=== PATIENT | female | born 2000 | race Asian ===

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

== ENCOUNTER 2021-04-26 18:31 | Emergency (ER) | payer OTHER ==
[~2021-04-26] VITALS: Ht 154.9 cm; Wt 60.9 kg
[2021-04-26 18:32] VITALS: BP 117/74
[2021-04-26 20:25] LABS: RSV AMPLIFICATION NEGATIVE (NEGATIVE)
[2021-04-26] MEDS ORDERED: ONDANSETRON 4 MG ORAL DISINTEGRATING TAB PO ONE (20:35)
[2021-04-26] MEDS ORDERED: ACETAMINOPHEN 325 MG TAB PO ONE (20:35)
== END 2021-04-26 23:00 | disposition home or self-care (01) ==
LOC: M ED 18:31
DX: R11.2 Nausea with vomiting, unspecified (principal); R51.9 Headache, unspecified; Z20.822 Contact with and (suspected) exposure to COVID-19
CPT/HCPCS: 36415; 84702; 87631; 99282; Q0162

== ENCOUNTER 2021-06-20 00:13 | Emergency (ER) | payer OTHER ==
[~2021-06-20] VITALS: Ht 152.4 cm; Wt 72.6 kg
--- OUTSIDE RECORDS SUMMARY | 2021-06-20 00:19 | CCD ---
Author Author [facility] Organization [facility] Address Unknown Phone Unavailable Support Name Relationship Address Phone [facility] Next Of Kin [address] [place] [address] Unavailable KULWANT MASON Next Of Kin [address] [place] [address] DESTINYREANZ Next Of Kin Unknown KULWANT MASON ECON [address] [place] [address] Unavailable Re-disclosure Warning The records that you are about to access may contain information from federally-assisted alcohol or drug abuse programs. If such information is present, then the following federally mandated warning applies: This information has been disclosed to you from records protected by federal confidentiality rules (42 CFR part 2). The federal rules prohibit you from making any further disclosure of this information unless further disclosure is expressly permitted by the written consent of the person to whom it pertains or as otherwise permitted by 42 CFR part 2. A general authorization for the release of medical or other information is NOT sufficient for this purpose. The Federal rules restrict any use of the information to criminally investigate or prosecute any alcohol or drug abuse patient.The records that you are about to access may contain highly sensitive health information, the redisclosure of which is protected by Article 27-F of the [facility] Public Health law. If you continue you may have access to information: Regarding HIV / AIDS; Provided by facilities licensed or operated by the [facility] Office of Mental Health; or Provided by the [facility] Office for People With Developmental Disabilities. If such information is present, then the following [facility] mandated warning applies: This information has been disclosed to you from confidential records which are protected by state law. State law prohibits you from making any further disclosure of this information without the specific written consent of the person to whom it pertains, or as otherwise permitted by law. Any unauthorized further disclosure in violation of state law may result in a fine or residential sentence or both. A general authorization for the release of medical or other information is NOT sufficient authorization for further disc losure. Immunizations Vaccine Date Status Description Data Source(s) COVID-19 VACCINE Pfizer 11/18/2020 12:00:00 AM EDT completed [facility] Vaccine Series Complete: NOThis Data was Submitted to [facility] Via [employer]. Medications No Information Insurance Providers Payer name Policy type / Coverage type Policy ID Covered libertarian ID Covered libertarian's relationship to brantley Policy Brantley Plan Information [facility] [employer] [id number] SP [id number] [facility] [employer] - O/P [id number] Problems, Conditions, and Diagnoses No Information Surgeries/Procedures No Information Results ID Date Data Source [id number] 04/26/2021 07:29:00 PM EDT [facility] Name Value Range Interpretation Code Description Data Lula rce(s) Supporting Document(s) SARS coronavirus 2 RNA [Presence] in Res piratory specimen by DEJON with probe detection NEGATIVE [facility] This lab was ordered by [facility] a nd reported by [facility]. ID Date Data Source [id number] 12/15/2020 05:13:00 PM EDT [facility] Name Value Range Interpretation Code Description Data Lula rce(s) Supporting Document(s) SARS-CoV-2 (COVID-19) RNA [Presence] in Respiratory specimen by DEJON with probe detection Not Detected [facility] This lab was ordered by [facility] and reported by [employer] ID Date Data Source [id number] 12/15/2020 04:35:00 PM EDT [facility] Name Value Range Interpretation Code Description Data Lula rce(s) Supporting Document(s) SARS COVID ANTIGEN NEGATIVE [facility] This lab was ordered by [facility] a nd reported by [facility]. Procedure Social History No Information
[2021-06-20 02:04] LABS: HEMATOCRIT 40.2 % (36.0-47.0); HEMOGLOBIN 13.4 g/dl (12.0-15.5); MEAN CORPUSCULAR HEMOGLOBIN 31.2 pg (27.0-33.0); MEAN CORPUSCULAR HGB CONC 33.3 g/dl (32.0-36.5); MEAN CORPUSCULAR VOLUME 93.7 fl (80.0-96.0); PLATELET COUNT, AUTOMATED 314 10^3/uL (150-450); RED BLOOD COUNT 4.29 10^6/uL (4.00-5.40); WHITE BLOOD COUNT 6.9 10^3/uL (4.0-10.0)
[2021-06-20 02:26] LABS: HCG, SERUM QUALITATIVE NEGATIVE (NEGATIVE)
[2021-06-20 02:28] LABS: AMPHETAMINES LEVEL URINE NEGATIVE (NEGATIVE); BARBITURATES URINE NEGATIVE (NEGATIVE); BENZODIAZEPINES URINE NEGATIVE (NEGATIVE); CANNABINOIDS URINE NEGATIVE (NEGATIVE); COCAINE METABOLITE URINE NEGATIVE (NEGATIVE); METHADONE URINE NEGATIVE (NEGATIVE); OPIATES URINE NEGATIVE (NEGATIVE); PHENCYCLIDINE URINE NEGATIVE (NEGATIVE)
[2021-06-20 02:41] LABS: ACETAMINOPHEN LEVEL < 2.0 UG/ML (10.0-30.0); ALBUMIN 4.2 GM/DL (3.2-5.2); ALT/SGPT 24 U/L (12-78); BILIRUBIN,DIRECT 0.1 MG/DL (0.0-0.2); BILIRUBIN,TOTAL 0.5 MG/DL (0.2-1.0); BLOOD UREA NITROGEN 6 MG/DL (7-18); CALCIUM LEVEL 9.6 MG/DL (8.5-10.1); CARBON DIOXIDE LEVEL 29 MEQ/L (21-32); CHLORIDE LEVEL 106 MEQ/L (98-107); CREATININE FOR GFR 0.75 MG/DL (0.55-1.30); ETHYL ALCOHOL (ETHANOL) 0.006 % (0.000-0.010); GLUCOSE, FASTING 103 MG/DL (70-100); POTASSIUM SERUM 3.7 MEQ/L (3.5-5.1); SALICYLATE LEVEL < 1.7 MG/DL (5.0-30.0); SODIUM LEVEL 142 MEQ/L (136-145); TOTAL PROTEIN 7.8 GM/DL (6.4-8.2)
--- OUTSIDE RECORDS SUMMARY | 2021-06-20 04:12 | CCD ---
Author Author [facility] Organization [facility] Address Unknown Phone Unavailable Support Name Relationship Address Phone [facility] Next Of Kin [address] [place] [address] Unavailable KULWANT MASON Next Of Kin [address] [place] [address] DESTINYREANZ Next Of Kin Unknown KULWANT MASON ECON [address] [place] [address] Unavailable Re-disclosure Warning The records that you [...] is protected by Article 27-F of the [facility] Public Health law. If you continue you may have access to information: Regarding HIV / AIDS; Provided by facilities licensed or operated by the [facility] Office of Mental Health; or Provided by the [facility] Office for People With Developmental Disabilities. If such information is present, then the following [facility] mandated warning applies: This information has been [...] law may result in a fine or mcfp sentence or both. A general authorization for the release of medical or other information is NOT sufficient authorization for further disc losure. Immunizations Vaccine Date Status Description Data Source(s) COVID-19 VACCINE Pfizer 11/18/2020 12:00:00 AM EDT completed [facility] Vaccine Series Complete: NOThis Data was Submitted to [facility] Via [email or web address]. Medications No Information Insurance Providers Payer name Policy type / Coverage type Policy ID Covered libertarian ID Covered libertarian's relationship to brantley Policy Brantley Plan Information [facility] [employer] [id number] SP [id number] [facility] [employer] - O/P [id number] Problems, Conditions, and Diagnoses No Information Surgeries/Procedures No Information Results ID Date Data Source [id number] 04/26/2021 07:29:00 PM EDT [facility] Name Value Range Interpretation Code Description Data Lula rce(s) Supporting Document(s) SARS coronavirus 2 RNA [Presence] in Res piratory specimen by DEJON with probe detection NEGATIVE [facility] This lab was ordered by [facility] a nd reported by [facility]. ID Date Data Source [id number] 12/15/2020 05:13:00 PM EDT [facility] Name Value Range Interpretation Code Description Data Lula rce(s) Supporting Document(s) SARS-CoV-2 (COVID-19) RNA [Presence] in Respiratory specimen by DEJON with probe detection Not Detected [facility] This lab was ordered by [facility] and reported by [employer]. ID Date Data Source [id number] 12/15/2020 04:35:00 PM EDT [facility] Name Value Range Interpretation Code Description Data Lula rce(s) Supporting Document(s) SARS COVID ANTIGEN NEGATIVE [facility] This lab was ordered by [facility] a nd reported by [facility]. Procedure Social History No Information
[2021-06-20 04:51] VITALS: BP 110/67
== END 2021-06-20 04:53 | disposition home or self-care (01) ==
LOC: M ED 00:13
DX: F32.A Depression, unspecified (principal); Z91.010 Allergy to peanuts

== ENCOUNTER → 2021-08-25 | Outpatient (REF) | LOC: M LABSMTC 14:03 | PROVIDERS: ATTEND Pediatrics | DX: Z20.822 Contact with and (suspected) exposure to COVID-19 (principal) ==

== ENCOUNTER 2022-06-05 09:36 | Inpatient (IN) | payer OTHER ==
[~2022-06-05] VITALS: Ht 154.9 cm; Wt 63.9 kg
[2022-06-05 13:56] LABS: HEMATOCRIT 42.4 % (36.0-47.0); HEMOGLOBIN 14.5 g/dl (12.0-15.5); MEAN CORPUSCULAR HEMOGLOBIN 32.4 pg (27.0-33.0); MEAN CORPUSCULAR HGB CONC 34.2 g/dl (32.0-36.5); MEAN CORPUSCULAR VOLUME 94.9 fl (80.0-96.0); PLATELET COUNT, AUTOMATED 357 10^3/uL (150-450); RED BLOOD COUNT 4.47 10^6/uL (4.00-5.40); WHITE BLOOD COUNT 6.8 10^3/uL (4.0-10.0)
[2022-06-05 14:20] LABS: HCG, SERUM QUALITATIVE NEGATIVE (NEGATIVE)
[2022-06-05 14:28] LABS: RSV AMPLIFICATION NEGATIVE (NEGATIVE)
[2022-06-05 14:37] LABS: ACETAMINOPHEN LEVEL < 2.0 UG/ML (10.0-30.0); ALBUMIN 4.5 GM/DL (3.2-5.2); ALT/SGPT 69 U/L (12-78); BILIRUBIN,DIRECT 0.3 MG/DL (0.0-0.2); BLOOD UREA NITROGEN 9 MG/DL (7-18); CALCIUM LEVEL 9.7 MG/DL (8.5-10.1); CARBON DIOXIDE LEVEL 25 MEQ/L (21-32); CHLORIDE LEVEL 105 MEQ/L (98-107); CREATININE FOR GFR 0.83 MG/DL (0.55-1.30); ETHYL ALCOHOL (ETHANOL) < 0.003 % (0.000-0.010); GLOMERULAR FILTRATION RATE > 60.0 (>60); GLUCOSE, FASTING 98 MG/DL (70-100); POTASSIUM SERUM 4.5 MEQ/L (3.5-5.1); SALICYLATE LEVEL < 1.7 MG/DL (5.0-30.0); SODIUM LEVEL 138 MEQ/L (136-145); TOTAL PROTEIN 8.6 GM/DL (6.4-8.2)
[2022-06-05 14:38] LABS: AMPHETAMINES LEVEL URINE NEGATIVE (NEGATIVE); BARBITURATES URINE NEGATIVE (NEGATIVE); BENZODIAZEPINES URINE NEGATIVE (NEGATIVE); CANNABINOIDS URINE NEGATIVE (NEGATIVE); COCAINE METABOLITE URINE NEGATIVE (NEGATIVE); METHADONE URINE NEGATIVE (NEGATIVE); OPIATES URINE NEGATIVE (NEGATIVE); PHENCYCLIDINE URINE NEGATIVE (NEGATIVE)
[2022-06-05] MEDS ORDERED: HOME MED LIST COMPLETE! XX SCH (21:50)
[2022-06-06] MEDS ORDERED: MAALOX 30 ML SUSP *UDC PO PRN (14:10)
[2022-06-06] MEDS ORDERED: MOM 30ML SUSPENSION UDC PO PRN (14:10)
[2022-06-06] MEDS ORDERED: ACETAMINOPHEN TAB 650MG DOSE (2X325MG) PO PRN (14:10)
[2022-06-06] MEDS ORDERED: traZODone 50 MG TAB PO PRN (14:10)
[2022-06-06 17:30] VITALS: BP 126/80
[2022-06-07 06:13] VITALS: BP 128/71
[2022-06-07 18:04] VITALS: BP 119/73
[2022-06-07] MEDS: OLANZapine 5 MG TAB PO SCH (21:01)
[2022-06-08 06:18] VITALS: BP 112/65
[2022-06-08] MEDS: SERTRALINE HCL 50 MG TAB PO SCH (09:34)
[2022-06-08 16:59] VITALS: BP 128/67
[2022-06-08] MEDS: OLANZapine 5 MG TAB PO SCH (20:38)
[2022-06-09 06:34] VITALS: BP 116/70
[2022-06-09 08:52] LABS: CHOLESTEROL RISK RATIO 2.796 (<5)
[2022-06-09] MEDS: SERTRALINE HCL 50 MG TAB PO SCH (09:15)
[2022-06-09 16:03] VITALS: BP 134/74
[2022-06-09 16:30] VITALS: BP 133/90
[2022-06-09] MEDS: OLANZapine 5 MG TAB PO SCH (21:23)
[2022-06-10 06:40] VITALS: BP 113/57
[2022-06-10] MEDS: SERTRALINE HCL 50 MG TAB PO SCH (09:17)
[2022-06-10 17:31] VITALS: BP 122/60
[2022-06-10] MEDS: OLANZapine 5 MG TAB PO SCH (21:01)
[2022-06-11 06:59] VITALS: BP 123/74
[2022-06-11] MEDS: SERTRALINE HCL 50 MG TAB PO SCH (09:56)
[2022-06-11] MEDS: OLANZapine 5 MG TAB PO SCH (21:07)
[2022-06-12 06:56] VITALS: BP 121/76
[2022-06-12] MEDS: SERTRALINE HCL 50 MG TAB PO SCH (08:08)
[2022-06-12] MEDS ORDERED: SERT50TA29 PO (09:59)
[2022-06-12] MEDS ORDERED: OLAN1TAB16 PO (09:59)
== END 2022-06-12 12:53 | disposition home or self-care (01) | DRG 881 ==
LOC: M ED 09:36 → M ED INP 06-06 14:07 → M PSY 06-06 16:50
PROVIDERS: ADMIT Psychiatry & Neurology Psychiatry; ATTEND Psychiatry & Neurology Psychiatry
DX: F32.A Depression, unspecified (principal); U07.1 COVID-19; F32.3 Major depressive disorder, single episode, severe with psychotic features; Z91.010 Allergy to peanuts

== ENCOUNTER 2022-08-02 15:54 | Emergency (ER) | payer OTHER ==
[~2022-08-02] VITALS: Ht 154.9 cm; Wt 70.1 kg
[~2022-08-02 15:54] MED LIST: OLAN1TAB16 PO; SERT50TA29 PO
[2022-08-02 18:04] LABS: HEMATOCRIT 40.9 % (36.0-47.0); HEMOGLOBIN 13.5 g/dl (12.0-15.5); MEAN CORPUSCULAR HEMOGLOBIN 31.8 pg (27.0-33.0); MEAN CORPUSCULAR VOLUME 96.5 fl (80.0-96.0); PLATELET COUNT, AUTOMATED 283 10^3/uL (150-450); RED BLOOD COUNT 4.24 10^6/uL (4.00-5.40); WHITE BLOOD COUNT 6.5 10^3/uL (4.0-10.0)
[2022-08-02 18:21] LABS: AMPHETAMINES LEVEL URINE NEGATIVE (NEGATIVE); BARBITURATES URINE NEGATIVE (NEGATIVE); BENZODIAZEPINES URINE NEGATIVE (NEGATIVE); CANNABINOIDS URINE NEGATIVE (NEGATIVE); COCAINE METABOLITE URINE NEGATIVE (NEGATIVE); METHADONE URINE NEGATIVE (NEGATIVE); OPIATES URINE NEGATIVE (NEGATIVE); PHENCYCLIDINE URINE NEGATIVE (NEGATIVE)
[2022-08-02 18:24] LABS: ETHYL ALCOHOL (ETHANOL) 0.003 % (0.000-0.010)
[2022-08-02 18:25] LABS: ACETAMINOPHEN LEVEL < 2.0 UG/ML (10.0-20.0)
[2022-08-02 18:26] LABS: BILIRUBIN,DIRECT 0.3 MG/DL (<0.4); SALICYLATE LEVEL < 3.0 MG/DL (<30)
[2022-08-02 18:32] LABS: ALBUMIN 4.3 G/DL (3.2-5.2); ALKALINE PHOSPHATASE 60 U/L (46-116); ALT/SGPT 27 U/L (7.0-40); AST/SGOT 28 U/L (<34); BILIRUBIN,TOTAL 0.9 MG/DL (0.3-1.2); BLOOD UREA NITROGEN 14 MG/DL (9-23); CALCIUM LEVEL 9.5 MG/DL (8.5-10.1); CARBON DIOXIDE LEVEL 23 MMOL/L (20-31); CHLORIDE LEVEL 105 MMOL/L (98-107); CREATININE FOR GFR 0.56 MG/DL (0.55-1.30); GLOMERULAR FILTRATION RATE > 60.0 (>60); GLUCOSE, FASTING 81 MG/DL (60-100); SODIUM LEVEL 141 MMOL/L (136-145); TOTAL PROTEIN 7.3 G/DL (5.7-8.2)
[2022-08-02 18:59] LABS: THYROID STIMULATING HORMONE 0.836 uIU/ML (0.55-4.78)
[2022-08-02 19:07] LABS: HCG, SERUM QUALITATIVE NEGATIVE (NEGATIVE)
[2022-08-02] MEDS ORDERED: OLAN1TAB16 PO (19:23)
[2022-08-02] MEDS ORDERED: SERT-141 PO (19:24)
[2022-08-02 19:36] VITALS: BP 70/70
== END 2022-08-02 19:41 | disposition home or self-care (01) ==
LOC: M ED 15:54
DX: F32.9 Major depressive disorder, single episode, unspecified (principal); Z91.010 Allergy to peanuts; Z79.83 Long term (current) use of bisphosphonates; Z79.52 Long term (current) use of systemic steroids